=== PATIENT | female | born 1970 | race African-American/Black ===

== ENCOUNTER 2017-04-15 03:35 | Emergency (ER) | payer OTHER ==
--- NOTE | 2017-04-15 03:45 | DR.GENAD ---
HPI - Complaint/Symptoms Chief Complaint Doctors Comments: Patient presented with complaint of headache today, nausea and diarrhea and vomiting. She denies fever but states that she has been dizzy for two weeks. PMH - PMH Past Surgical History: No - Family History Family Medical History: Diabetes Mellitus, Cancer, [place], Hypertension - Social History Do you use any recreational Drugs:: No ROS - Review of Systems Eyes: No Symptoms Reported ENTM: No Symptoms Reported Respiratoy: No Symptoms Reported Cardiovascular: No Symptoms Reported Gastrointestinal/Abdominal: No Symptoms Reported Genitourinary: No Symptoms Reported Neurological: No Symptoms Reported Musculoskeletal: No Symptoms Reported Integumentary: No Symptoms Reported Hematologic/Lymphatic: No Symptoms Reported Endocrine: No Symptoms Reported Psychiatric: No Symptoms Reported All Other Systems: Reviewed and Negative PE - Vital Signs Vitals: Temperature 99.4 F Pulse Rate 89 Respiratory Rate 20 Blood Pressure [Right Arm] 107/62 Blood Pressure 187/102 O2 Sat by Pulse Oximetry 100 - General General Appearance: Alert - Head Head Exam: Normal Inspection, Atraumatic - Eyes Eye exam: Normal Appearance, PERRL, EOMI - ENT ENT Exam: Normal Exam External Ear Exam: Normal External Inspection TM/Canal Exam: Bilateral Normal Nose Exam: Normal Nose Exam Mouth Exam: Normal Inspection Throat Exam: Normal Inspection - Neck Neck Exam: Normal Inspection, Full ROM - Chest Chest Inspection: Normal Inspection - Respiratory Respiratory Exam: Normal Lung Sounds Bilat Respiratory Exam: Bilateral Clear to Auscultation - Cardiovascular Cardiovascular Exam: Regular Rate, Normal Rhythm - Abdominal Exam Abdominal Exam: Normal Inspection Abdominal Tenderness: negative: RUQ, RLQ, LUQ, LLQ, Epigastrium, Suprapubic, Diffuse, Mild, Moderate, Severe, Other - Extremities Extremities Exam: Normal Inspection - Back Back Exam: Normal Inspection - Neurologic Neurological Exam: Alert, Oriented X3, CN II-XII Intact - Psychiatric Psychiatric Exam: Normal Affect - Skin Skin Exam: Warm, Dry, Intact Course - Reevaluation 1st: Improved (headache) ROR - Labs Reviewed Result Diagrams: 04/15/17 04:28 04/15/17 04:28 Laboratory: WBC 6.7 X10^3/uL (3.6-10.0) 04/15/17 04:28 RBC 3.37 X10^6/uL (3.5-5.4) L 04/15/17 04:28 Hgb 8.3 g/dL (12.0-16.0) L 04/15/17 04:28 Hct 25.5 % (36.0-47.0) L 04/15/17 04:28 MCV 75.8 fL (80.0-100.0) L 04/15/17 04:28 MCH 24.8 pg (27.0-34.0) L 04/15/17 04:28 MCHC 32.7 g/dL (33.0-35.0) L 04/15/17 04:28 RDW 17.5 % (11.6-16.5) H 04/15/17 04:28 Plt Count 215 X10^3/uL (150.0-450.0) 04/15/17 04:28 Plt Count Comment Adequate (ADEQUATE) 04/15/17 04: MPV 9.0 fL (7.4-11.0) 04/15/17 04:28 Neut % 67.3 % (42.0-75.0) 04/15/17 04:28 Lymph % 22.4 % (21.0-51.0) 04/15/17 04:28 [place] % 6.0 % (0.0-13.0) 04/15/17 04:28 Eos % 3.3 % (0.9-2.9) H 04/15/17 04:28 Baso % 1.0 % (0.2-1.0) 04/15/17 04: Neut # 4.5 x10^3/uL (2.2-4.8) 04/15/17 04:28 Lymph # 1.5 X10^3/uL (1.3-2.9) 04/15/17 04:28 [place] # 0.4 x10^3/uL (0.3-0.8) 04/15/17 04:28 Eos # 0.2 x10^3/uL (0.0-0.2) 04/15/17 04: Baso # 0.1 X10^3/uL (0.0-0.1) 04/15/17 04:28 Absolute Nucleated RBC 0.0 /100WBC 04/15/17 04:28 Plt Morphology Comment Normal (NORMAL) 04/15/17 04:28 RBC Morphology Normal (NORMAL) 04/15/17 04:28 Sodium 140 mmol/L (136-145) 04/15/17 04:28 Corrected Sodium TNP 04/15/17 04:28 Potassium 3.5 mmol/L (3.5-5.1) 04/15/17 04:28 Chloride 105 mmol/L (98-107) 04/15/17 04:28 Carbon Dioxide 26.1 mmol/L (21-32) 04/15/17 04:28 BUN 10 mg/dL (7-18) 04/15/17 04:28 Creatinine 0.94 mg/dL (0.55-1.02) 04/15/17 04:28 Est GFR (MDRD) Af Amer > 60 (>60) 04/15/17 04:28 Est GFR (MDRD) Non-Af > 60 (>60) 04/15/17 04:28 Glucose 94 mg/dL (65-99) 04/15/17 04:28 Calcium 9.3 mg/dL (8.5-10.1) 04/15/17 04:28 Specimen Type Clean catch urine 04/15/17 04:40 Urine Color Yellow (YELLOW) 04/15/17 04:40 Urine Appearance Clear (CLEAR) 04/15/17 04:40 Urine pH 8.0 (5.0 - 8.0) 04/15/17 04:40 Ur Specific [place] 1.015 (1.000-1.030) 04/15/17 04:40 Urine Protein Negative (NEGATIVE) 04/15/17 04:40 Urine Glucose (UA) Negative (NEGATIVE) 04/15/17 04:40 Urine Ketones Negative (NEGATIVE) 04/15/17 04:40 Urine Occult Blood Negative (NEGATIVE) 04/15/17 04:40 Urine Nitrite Negative (NEGATIVE) 04/15/17 04:40 Urine Bilirubin Negative (NEGATIVE) 04/15/17 04:40 Urine Urobilinogen Normal (NORMAL) 04/15/17 04:40 Ur Leukocyte Esterase Negative (NEGATIVE) 04/15/17 04:40 Urine RBC 0-3 /HPF (NEGATIVE) 04/15/17 04:40 Urine WBC 0-3 /HPF (NEGATIVE) 04/15/17 04:40 Ur Squamous Epith Cells Moderate /HPF (NEGATIVE) 04/15/17 04:40 Urine Bacteria Negative /HPF (NEGATIVE) 04/15/17 04:40 Ur Culture Indicated? No/not indicated 04/15/17 04:40 - XRAY XRAY Interpreted by: Radiologist (chest; No acute abnormality observed) - Diagnosis Discharge Problem: Viral illness - Discharge Plan Condition: Stable - Follow ups/Referrals Follow ups/Referrals: NFD,None [Primary Care Provider] - 3 days - Instructions
[2017-04-15 03:56] VITALS: BMI 36.0
[2017-04-15] MEDS ORDERED: NS 1000 ML 1,000 ML IV ONE (04:17)
[2017-04-15] MEDS ORDERED: TORADOL 30 MG VIAL IVP ONE (04:22)
[2017-04-15] MEDS ORDERED: ZOFRAN INJ 4 MG VIAL IVP ONE (04:22)
[2017-04-15] MEDS ORDERED: NS 1000 ML 1,000 ML ONE (04:23)
[2017-04-15] MEDS ORDERED: TORADOL 30 MG VIAL ONE (04:34)
[2017-04-15] MEDS ORDERED: ZOFRAN INJ 4 MG VIAL ONE (04:34)
[2017-04-15 04:50] LABS: BASOPHILS # (AUTO) 0.1 X10^3/uL (0.0-0.1); EOSINOPHILS # (AUTO) 0.2 x10^3/uL (0.0-0.2); EOSINOPHILS % (AUTO) 3.3 % (0.9-2.9); HEMATOCRIT 25.5 % (36.0-47.0); HEMOGLOBIN 8.3 g/dL (12.0-16.0); LYMPHOCYTES # (AUTO) 1.5 X10^3/uL (1.3-2.9); LYMPHOCYTES % (AUTO) 22.4 % (21.0-51.0); MEAN CORPUSCULAR HEMOGLOBIN 24.8 pg (27.0-34.0); MEAN CORPUSCULAR HGB CONC 32.7 g/dL (33.0-35.0); MEAN CORPUSCULAR VOLUME 75.8 fL (80.0-100.0); MONOCYTES # (AUTO) 0.4 x10^3/uL (0.3-0.8); NEUTROPHILS # (AUTO) 4.5 x10^3/uL (2.2-4.8); NEUTROPHILS % (AUTO) 67.3 % (42.0-75.0); PLATELET COUNT 215 X10^3/uL (150.0-450.0); RED BLOOD COUNT 3.37 X10^6/uL (3.5-5.4); RED CELL DISTRIBUTION WIDTH 17.5 % (11.6-16.5); WHITE BLOOD COUNT 6.7 X10^3/uL (3.6-10.0)
--- NOTE | 2017-04-15 04:52 | RAD ---
AP Chest Indication: Dizziness Comparison: 06/04/2012 Findings: The trachea is midline. The cardiac silhouette is unremarkable. The lungs are clear without focal i nfiltrate or effusion. The bony thorax is unremarkable. IMPRESSION: 1. No acute cardiopulmonary abnormality. Reported By:
[2017-04-15 04:53] LABS: BLOOD UREA NITROGEN 10 mg/dL (7-18); CALCIUM 9.3 mg/dL (8.5-10.1); CARBON DIOXIDE 26.1 mmol/L (21-32); CHLORIDE 105 mmol/L (98-107); CREATININE 0.94 mg/dL (0.55-1.02); SODIUM 140 mmol/L (136-145); eGFR BLACK RACES > 60 (>60); eGFR NON BLACK RACES > 60 (>60)
[2017-04-15 05:07] LABS: BILIRUBIN,URINE NEGATIVE (NEGATIVE); BLOOD/HEMOGLOBIN,URINE NEGATIVE (NEGATIVE); GLUCOSE, URINE NEGATIVE (NEGATIVE); KETONES,URINE NEGATIVE (NEGATIVE); LEUKOCYTE ESTERASE ,URINE NEGATIVE (NEGATIVE); NITRITES,URINE NEGATIVE (NEGATIVE); PROTEIN,URINE NEGATIVE (NEGATIVE); UROBILINOGEN,URINE NORMAL (NORMAL)
[2017-04-15 05:10] LABS: PLATELET MORPHOLOGY COMMENT NORMAL (NORMAL)
[2017-04-15 05:15] LABS: APPEARANCE,URINE CLEAR (CLEAR); BACTERIA,URINE NEGATIVE /HPF (NEGATIVE); COLOR,URINE YELLOW (YELLOW); RBC,URINE 0-3 /HPF (NEGATIVE); SQUAMOUS EPITHELIAL CELL,UR MODERATE /HPF (NEGATIVE)
[2017-04-15 06:12] VITALS: BP 167/95
== END 2017-04-15 06:12 | disposition home or self-care (01) ==
LOC: ER 03:35
DX: B34.9 Viral infection, unspecified (principal)
CPT/HCPCS: 36415; 71045; 80048; 81001; 85025; 96365; 96374; 96375; 99283; A4222; J1885; J2405

== ENCOUNTER 2017-07-11 18:40 | Emergency (ER) | payer OTHER ==
[2017-07-11 18:46] VITALS: BP 151/74; BMI 31.7
--- NOTE | 2017-07-11 19:13 | DR.GENAD ---
HPI - PCP Primary Care Physician: nfd - HPI Comment HPI Comment: HAVING HEADACHE, SEVERE NASAL CONGESTION AND BLOCKAGE AND POST NASAL DRIP WITH PRODUCTIVE COUGH, YELLOW SPUTUM. LOW GRADE FEVER AT HOME. GETTING WORSE. - Complaint/Symptoms Chief Complaint Doctors Comments: EAR ACHE, COUGH, COLD AND CONGESTION TIMES ONE DAY. Chief Complaint:: ear ache, congestion - Nurses notes reviewed Nurses Notes Review: Yes - Source History Provided: Patient - Mode of Arrival Mode of Arrival: Ambulatory - Timing Onset of Chief Complaint: 07/10/17 Came on: Suddenly - Duration Duration: Constant Duration: Days - Severity Severity: Moderate PMH - PMH Past Medical History: Yes Past Surgical History: No - Family History History of Family Medical Conditions: Yes Family Medical History: Diabetes Mellitus, Cancer, [place], Hypertension - Social History Does patient currently use any type of tobacco product: No Have you used tobacco products in the last 12 months: No Type of Tobacco Use: None Does any household member use tobacco: No Alcohol Use: None Do you use any recreational Drugs:: No Lives With: Family Lives Where: Home - infectious screening In the last 2 months have you had wt loss of >10#?: NO Have you had fever, night sweats or hemotysis?: No Have you traveled outside the country in the last 6 months?: No Isolation: Standard ROS - Review of Systems Constitutional: No Symptoms Reported, Fever, Weakness, Fatigue. negative: Chills Eyes: Tearing. negative: Eye Pain, Discharge ENTM: Ear Pain (LT EAR.), Nose Discharge, Nose Congestion, Throat Pain Respiratoy: Productive Cough Cardiovascular: No Symptoms Reported Gastrointestinal/Abdominal: No Symptoms Reported Genitourinary: No Symptoms Reported Neurological: No Symptoms Reported Musculoskeletal: No Symptoms Reported Integumentary: No Symptoms Reported Hematologic/Lymphatic: No Symptoms Reported Endocrine: No Symptoms Reported All Other Systems: Reviewed and Negative PE - Vital Signs Vitals: Temperature 98.1 F Pulse Rate 78 Respiratory Rate 16 Blood Pressure [Right Arm] 167/95 Blood Pressure 151/74 O2 Sat by Pulse Oximetry 99 - General Limitations: No Limitations General Appearance: Alert - Head Head Exam: Normal Inspection - Eyes Eye exam: Normal Appearance - ENT ENT Exam: Normal External Ear Exam External Ear Exam: Normal External Inspection TM/Canal Exam: Bilateral Bulging Nose Exam: Normal Nose Exam Mouth Exam: Normal Inspection Throat Exam: Tonsillar Erythema. negative: Tonsillomegaly, Tonsillar Exudate - Neck Neck Exam: Trachea Midline - Chest Chest Inspection: Symmetric Chest Wall Rise - Respiratory Respiratory Exam: Normal Lung Sounds Bilat Respiratory Exam: Bilateral Clear to Auscultation - Cardiovascular Cardiovascular Exam: Regular Rate, Normal Rhythm, Normal Heart Sounds - Abdominal Exam Abdominal Exam: Normal Bowel Sounds, Soft. negative: Tenderness - Extremities Extremities Exam: Normal Inspection - Back Back Exam: Normal Inspection - Neurologic Neurological Exam: Alert, Oriented X3 - Psychiatric Psychiatric Exam: Normal Affect, Normal Mood - Skin Skin Exam: Normal Color MDM - Differential Diagnosis Differential Diagnosis: EAR ACHE, BRONCHITIS, SINUSITIS Course - Treatment Treatment: SEE ORDERS. - Education/Counseling Education/Counseling: Patient, Education Educated On: Diagnosis, Needs for Follow Up - Diagnosis Discharge Problem: Bronchitis Sinusitis Qualifiers: Sinusitis location: unspecified location Chronicity: acute Recurrence: not specified as recurrent Qualified Code(s): J01.90 - Acute sinusitis, unspecified Left otitis media Qualifiers: Otitis media type: unspecified Qualified Code(s): H66.92 - Otitis media, unspecified, left ear - Discharge Plan Disposition: 01 HOME, SELF-CARE Condition: Stable Prescriptions: Acetaminophen/Codeine Tab [TYLENOL w/CODEINE #3 (300 MG/30 MG) *] 1 tab PO Q6H PRN #15 tab PRN Reason: Pain Amoxicillin [Amoxil 875 mg] 875 mg PO Q12H #20 tab Cetirizine HCl [Zyrtec Tab 10 mg] 10 mg PO DAILY PRN #30 tab PRN Reason: - Follow ups/Referrals Follow ups/Referrals: NFD,None [Primary Care Provider] - 2 days Uriah Guzman [STAFF PHYSICIAN] - 2 days - Instructions Instructions: Otitis Media, Adult, [id number], Sinusitis, Adult, [id number] , Acute Bronchitis, Adult Additional Instructions: RETURN TO ED IF WORSE.
[2017-07-11] MEDS ORDERED: AMOXIL CAP 500 MG PO ONE ×2 (19:22→19:32)
[2017-07-11] MEDS ORDERED: TYLENOL #3 TAB (W/CODEINE) PO ONE ×2 (19:24→19:32)
[2017-07-11] MEDS ORDERED: ZyrTEC TAB 10 MG PO ONE (19:25)
[2017-07-11] MEDS ORDERED: FLONASE NASAL SPRAY ENOSTRIL ONE (19:26)
[2017-07-11] MEDS ORDERED: ZyrTEC TAB 10 MG ONE (19:32)
== END 2017-07-11 19:50 | disposition home or self-care (01) ==
LOC: ER 18:48
DX: H66.92 Otitis media, unspecified, left ear (principal); J40 Bronchitis, not specified as acute or chronic; J01.80 Other acute sinusitis
CPT/HCPCS: 99281; 99282

== ENCOUNTER 2018-10-17 04:20 | Inpatient (IN) ==
[2018-10-17 04:40] VITALS: BMI 33.6
[2018-10-17] MEDS ORDERED: ASPIRIN 81 MG CHEWTAB ONE (04:41)
[2018-10-17] MEDS ORDERED: ASPIRIN 81 MG CHEWTAB PO ONE (04:42)
[2018-10-17] MEDS ORDERED: ATIVAN TAB 0.5 MG PO ONE (04:43)
[2018-10-17] MEDS ORDERED: ATIVAN TAB 0.5 MG ONE (04:44)
[2018-10-17] MEDS: NITROSTAT SL PRN ×4 (04:46→15:20)
[2018-10-17] MEDS ORDERED: LOPRESSOR INJ 5 MG AMP IVP ONE (04:56)
[2018-10-17] MEDS ORDERED: LOPRESSOR INJ 5 MG AMP ONE (05:00)
--- NOTE | 2018-10-17 05:03 | DR.CP ---
HPI Time Seen Time Seen by Provider: 10/17/18 04:38 Complaint Chief Complaint Doctor Comments: Pt presented for sudden onset chest pain. 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 She reports about 1hr ago going to the rest room when suddenly her she could not breath and having chest tightness and left arm numbness and coughing up pink frothy stuff. Positive TEJADA, orthpnea. She has HTN and is overweight. Denies any n/v, diaphoresis, LE swelling or leg pain. Pain pressure like 12/27. Chief Complaint:: Chest pain Reviewed Nurses Notes Review: Yes Source History Provided: Patient Mode of Arrival Mode of Arrival: Ambulatory Timing Onset of Chief Complaint: 10/17/18 Came on: Suddenly Pain: Present Now Duration Duration: Constant How lon Duration: Hours Location Location of Chest Pain: Chest Chest Pain Radiation Location: Left Shoulder Context Onset: At rest and With light exertion Cardiac Risk Factors: Family History and HTN; denies Smoker, Hyperlipidemia and Diabetes PE Risk Factors: None; denies Recent Trauma/Surgery and Immobilization History of: Similar pain in the past (anxiety); denies [place], Cardiomyopathy, DVT/PE and Aspirin in last 24 hours Prehospital Care: None Quality Quality: Pressure like Severity Severity: Mild Modifying Factors Worsens: Exertion, Coughing, Breathing and Position Impoves: NTG, Rest and Position Associated Signs and Symptoms Associated Signs and Symptoms: Shortness of Breath and Palpitations; denies Diaphoresis, Nausea/Vomiting and Calf Pain/Swelling PMH PMH Past Medical History: Hypertension Past Surgical History: Yes 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 Family History Family Medical History: Diabetes Mellitus, Cancer, [place] and Hypertension Social History Does patient currently use any type of tobacco product: No Have you used tobacco products in the last 12 months: No Does any household member use tobacco: No Do you use any recreational Drugs:: No infectious screening Have you traveled outside the country in the last 6 months?: No ROS Review of Systems Constitutional: negative Chills, Diaphoresis, Fever and Loss of Appetite Eyes: Blurred Vision ENTM: negative Nose Congestion Respiratoy: Orthopnea and Short of Breath; negative Productive Cough Cardiovascular: Chest Pain; negative Edema and Palpitations Gastrointestinal/Abdominal: negative Abdominal Pain, Nausea and Vomiting Genitourinary: negative Dysuria and Hematuria Neurological: negative Headache, Numbness, Paresthesia and Weakness Musculoskeletal: negative Muscle Pain Integumentary: negative Rash Hematologic/Lymphatic: negative Blood Clots and Easy Bleeding Endocrine: negative Unexplained Weight Gain and Decreased Appetite Psychiatric: Anxiety; negative Depression All Other Systems: Reviewed and Negative PE Vitals Vitals: Temperature 98.3 F Pulse Rate [Apical] 85 Pulse Rate 130 Respiratory Rate 20 Blood Pressure [Left Arm] 165/80 Blood Pressure [Right Arm] 161/80 Blood Pressure 176/90 O2 Sat by Pulse Oximetry 98 General Limitations: No Limitations General Appearance: Alert, In Distress (hyperventilating) and Obese Head Head Exam: Normal Inspection, Atraumatic and Normocephalic Eyes Eye exam: Normal Appearance, PERRL and EOMI; negative Scleral Icterus ENT ENT Exam: Normal Exam, Normal Oropharynx and Mucous Membranes Moist Chest Chest Inspection: negative Tenderness Respiratory Respiratory Exam: Prolonged Expiratory Phase and Respiratory Distress Respiratory Exam: Bilateral: Rales Cardiovascular Cardiovascular Exam: Normal Rhythm, Tachycardia, Normal Heart Sounds and Systolic Murmur Pulse: Normal, Radial, Left and Right Edema: Normal Abdominal Exam Abdominal Exam: Normal Bowel Sounds, Soft and Guarding; negative Distention and Tenderness Extremities Extremities Exam: Normal Inspection, Full ROM and Normal Capillary Refill; negative Tenderness and Edema Neurologic Neurological Exam: Alert, Oriented X3 and Normal Gait; negative Motor Sensory Deficit Psychiatric Psychiatric Exam: Normal Affect and Anxious Skin Skin Exam: Warm, Dry, Intact and Normal Color MDM Differential Diagnosis Differential Diagnosis: Angina, CHF, Myocardial Infarction, Pneumonia, Pneumothorax and Pulmonary Embolus COURSE Reevaluation 1st: Improved (Pt chest pressure improving after 2 SL NG, ativan 0.25mg and Lopressor. Still having pressure and numbness in left arm.) 2nd: Improved (pt feeling a little better. CXR showed pulmonary edema/CHF.BNP pending. Will given Lasix 40mg x1) 3rd: Improved (pt pain improved with morphine and lasix. She still feels Sob and anxious. Her BNP 231. Will call PCP to discuss case and admission.) Consultation Called: 07:20 Call Returned: 07:45 Consultation Comments: Spoke to Dr. Elder for admission. Discussed case and plan. He agreed and will see I the hospital. 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 Labs Reviewed Laboratory Results Reviewed?: Yes Result Diagrams: 10/17/18 05:00 10/17/18 05:00 Laboratory: WBC 12.2 X10^3/uL (3.6-10.0) H 10/17/18 05:00 RBC 3.69 X10^6/uL (3.5-5.4) 10/17/18 05:00 Hgb 8.8 g/dL (12.0-16.0) L 10/17/18 05:00 Hct 27.0 % (36.0-47.0) L 10/17/18 05:00 MCV 73.3 fL (80.0-100.0) L 10/17/18 05:00 MCH 23.8 pg (27.0-34.0) L 10/17/18 05:00 MCHC 32.5 g/dL (33.0-35.0) L 10/17/18 05:00 RDW 19.0 % (11.6-16.5) H 10/17/18 05:00 Plt Count 283 X10^3/uL (150.0-450.0) 10/17/18 05:00 Plt Count Comment Adequate (ADEQUATE) 10/17/18 05:00 MPV 8.9 fL (7.4-11.0) 10/17/18 05:00 Neut % (Auto) 78.7 % (42.0-75.0) H 10/17/18 05:00 Lymph % (Auto) 14.0 % (21.0-51.0) L 10/17/18 05:00 [place] % (Auto) 5.8 % (0.0-13.0) 10/17/18 05:00 Eos % (Auto) 0.8 % (0.9-2.9) L 10/17/18 05:00 Baso % (Auto) 0.7 % (0.2-1.0) 10/17/18 05:00 Neut # (Auto) 9.6 x10^3/uL (2.2-4.8) H 10/17/18 05:00 Lymph # (Auto) 1.7 X10^3/uL (1.3-2.9) 10/17/18 05:00 [place] # (Auto) 0.7 x10^3/uL (0.3-0.8) 10/17/18 05:00 Eos # (Auto) 0.1 x10^3/uL (0.0-0.2) 10/17/18 05:00 Baso # (Auto) 0.1 X10^3/uL (0.0-0.1) 10/17/18 05:00 Absolute Nucleated RBC 0.0 /100WBC 10/17/18 05:00 Plt Morphology Comment Normal (NORMAL) 10/17/18 05:00 RBC Morphology Abnormal (NORMAL) A 10/17/18 05:00 Hypochromasia 1+ A 10/17/18 05:00 INR Target Range - 10/17/18 05:00 INR 0.97 (0.8-1.3) 10/17/18 05:00 Sodium 140 mmol/L (136-145) 10/17/18 05:00 Corrected Sodium TNP 10/17/18 05:00 Potassium 3.1 mmol/L (3.5-5.1) L 10/17/18 05:00 Chloride 104 mmol/L (98-107) 10/17/18 05:00 Carbon Dioxide 24.4 mmol/L (21-32) 10/17/18 05:00 BUN 13 mg/dL (7-18) 10/17/18 05:00 Creatinine 1.03 mg/dL (0.55-1.02) H 10/17/18 05:00 Est GFR (MDRD) Af Amer > 60 (>60) 10/17/18 05:00 Est GFR (MDRD) Non-Af > 60 (>60) 10/17/18 05:00 Glucose 98 mg/dL (65-99) 10/17/18 05:00 Calcium 8.8 mg/dL (8.5-10.1) 10/17/18 05:00 Troponin I 0.06 ng/mL (0-1.5) 10/17/18 05:00 B-Natriuretic Peptide 231 pg/mL (0-79) H 10/17/18 05:10 TSH 3rd Generation 5.500 uIU/mL (0.358-3.74) H 10/17/18 05:00 Other Results Comments: WBC 12.2K, Hb 8.8 hct 27.0 MCV 73, Trop 0.06 neg, K 3.1 TSH 5.5 BNP 231 CTA chest: no pe, marika pulmonary edema R>L XRAY XRAY Interpreted by: Radiologist and Self XRAY Findings: CHF with pulmonary edema EKG Compared to prior EKG Dated: 05/18/12 Rate: 105 [place]: LAD Rhythm: ST Block: LBBB (old) ST: Nonsp Opioid Opioid Risk Tool Total: 0 Total Score Risk Category: Low Risk Copyright: [facility] predicting aberrant behaviors Diagnosis Discharge Problem: Pulmonary edema cardiac cause, Acute respiratory distress Heart failure Qualifiers: Heart failure type: unspecified Heart failure chronicity: unspecified Qualified Code(s): I50.9 - Heart failure, unspecified Hypothyroidism Qualifiers: Hypothyroidism type: unspecified Qualified Code(s): E03.9 - Hypothyroidism, unspecified Iron deficiency anemia Qualifiers: Iron deficiency anemia type: other iron deficiency Qualified Code(s): D50.8 - Other iron deficiency anemias Instructions Forms: Excuse From Work
[2018-10-17 05:06] LABS: BASOPHILS # (AUTO) 0.1 X10^3/uL (0.0-0.1); BASOPHILS % (AUTO) 0.7 % (0.2-1.0); EOSINOPHILS # (AUTO) 0.1 x10^3/uL (0.0-0.2); EOSINOPHILS % (AUTO) 0.8 % (0.9-2.9); HEMOGLOBIN 8.8 g/dL (12.0-16.0); LYMPHOCYTES # (AUTO) 1.7 X10^3/uL (1.3-2.9); MEAN CORPUSCULAR HEMOGLOBIN 23.8 pg (27.0-34.0); MEAN CORPUSCULAR HGB CONC 32.5 g/dL (33.0-35.0); MEAN CORPUSCULAR VOLUME 73.3 fL (80.0-100.0); MEAN PLATELET VOLUME 8.9 fL (7.4-11.0); MONOCYTES # (AUTO) 0.7 x10^3/uL (0.3-0.8); MONOCYTES % (AUTO) 5.8 % (0.0-13.0); NEUTROPHILS # (AUTO) 9.6 x10^3/uL (2.2-4.8); NEUTROPHILS % (AUTO) 78.7 % (42.0-75.0); PLATELET COUNT 283 X10^3/uL (150.0-450.0); RED BLOOD COUNT 3.69 X10^6/uL (3.5-5.4); WHITE BLOOD COUNT 12.2 X10^3/uL (3.6-10.0)
[2018-10-17 05:15] LABS: PLATELET MORPHOLOGY COMMENT NORMAL (NORMAL)
[2018-10-17 05:16] LABS: HYPOCHROMASIA 1+
[2018-10-17 05:20] LABS: BLOOD UREA NITROGEN 13 mg/dL (7-18); CALCIUM 8.8 mg/dL (8.5-10.1); CARBON DIOXIDE 24.4 mmol/L (21-32); CHLORIDE 104 mmol/L (98-107); CREATININE 1.03 mg/dL (0.55-1.02); SODIUM 140 mmol/L (136-145); TROPONIN I 0.06 ng/mL (0-1.5); eGFR NON BLACK RACES > 60 (>60)
[2018-10-17] MEDS ORDERED: NS 100 ML IV 100 ML ONE (05:45)
[2018-10-17] MEDS ORDERED: K-LYTE EFFERVESCENT PO ONE (05:46)
[2018-10-17] MEDS ORDERED: MORPHINE SULFATE INJ 2 MG INJ IVP ONE (05:48)
[2018-10-17] MEDS ORDERED: LASIX IVP ONE ×2 (06:28→06:44)
[2018-10-17] MEDS ORDERED: MORPHINE SULFATE INJ 2 MG INJ ONE (06:44)
[2018-10-17] MEDS ORDERED: K-LYTE EFFERVESCENT ONE (06:44)
[2018-10-17] MEDS ORDERED: ZESTRIL TAB 5 MG PO SCH (09:00)
[2018-10-17] MEDS: LASIX IVP SCH (10:11)
[2018-10-17 10:13] LABS: CKMB % 1.6 % (<4); CREATINE KINASE MB 1.1 ng/mL (0-4.0); TROPONIN I 0.07 ng/mL (0-1.5)
--- NOTE | 2018-10-17 13:42 | DR.H&P ---
H&P - History & Physical for Day of: H&P Date: 10/17/18 - Chief Complaint Chief Complaint: SOB, CHEST PRESSURE - History of Present Illness History of Present Illness: 48 BF ER ADMISSION AFTER PRESENTING WITH SUDDEN ONSET OF SOB WITH CHEST PRESSURE. PT STATES SHE WAS FEELING BAD, NAUSEA, FELT LIKE SHE HAD A FEVER. She reports about 1hr ago going to the rest room when suddenly her she could not breath and having chest tightness and left arm numbness and coughing up pink frothy stuff. Positive TEJADA, orthpnea. She has HTN and is overweight. Denies any n/v, diaphoresis, LE swelling or leg pain. Pain pressure like 10/10. PT HAD CTA CHEST IN ER REVEALING PULMONARY EDEMA AND CHF. PT ADMITTED TO ICU FOR TREATMENT AND EVALUATION OF ACUTE SOB. 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 denies: Edema Gastrointestinal: Nausea Genitourinary: No Symptoms Reported Skin: No Symptoms Reported Neurological: No Symptoms Reported - Physical Exam Vital Signs: Temperature 98.5 F Pulse Rate [Apical] 87 Pulse Rate 130 Respiratory Rate 20 Blood Pressure [Left Arm] 167/89 Blood Pressure [Right Arm] 161/80 Blood Pressure 176/90 O2 Sat by Pulse Oximetry 2 Oriented: Normal Eyes: Normal Ear: Normal Nose: Normal Throat: Normal Respiratory: RLL Diminished, LLL Diminished Cardiovascular: Tachycardia. negative: Edema : Normal Auscultation: Bowel Sounds: Normal Palpation: Normal Tenderness: Normal Skin: Normal Musculoskeletal: Normal Psychiatric: Anxiety Mood Description: Calm Affect: Anxious Speech Pattern: Appropriate - Assessment/Plan (1) Acute respiratory distress Status: Acute Plan: ADMIT, ICU SERIAL CE AND EKG. CONTINUOUS CARDIAC MONITORING. IV LASIX WITH STRICT I & OS. SUPPLEMENTAL O2, BP CONTROL. ARB, ASPIRIN THERAPY. ELECTROLYTE REPLACEMENT, CTA CHEST IN ER. AM CHEST XRAY (2) Heart failure Qualifiers: Heart failure type: unspecified Heart failure chronicity: unspecified Qualified Code(s): I50.9 - Heart failure, unspecified Status: Acute (3) Pulmonary edema cardiac cause Status: Acute (4) Viral illness Status: Acute (5) Hypertension Qualifiers: Hypertension type: essential hypertension Qualified Code(s): I10 - Essential (primary) hypertension Status: Acute (6) Iron deficiency anemia Qualifiers: Iron deficiency anemia type: other iron deficiency Qualified Code(s): D50.8 - Other iron deficiency anemias Status: Acute - Allergies Allergies/Adverse Reactions: Allergies Allergy/AdvReac Type Severity Reaction Status Date / Time No Known Drug Allergies Allergy Verified 08/30/17 15:07
[2018-10-17] MEDS ORDERED: PHARMACY CONSULT - DOSE _____ XX SCH (14:00)
[2018-10-17] MEDS ORDERED: DEXFERRUM or INFED 25 MG in NS 100 ML IV 100 ML IV NR (16:00)
[2018-10-17] MEDS: ROCEPHIN VIAL 1 GRAM IVP SCH (16:06)
[2018-10-17] MEDS: LOVENOX INJ 40 MG SYR SC SCH (16:06)
[2018-10-17] MEDS: COZAAR PO SCH (16:11)
[2018-10-17 16:16] LABS: CREATINE KINASE 63 Units/L (26-192); CREATINE KINASE MB < 1.0 ng/mL (0-4.0); TROPONIN I 0.09 ng/mL (0-1.5)
[2018-10-17 16:59] LABS: CKMB % 1.6 % (<4)
[2018-10-17] MEDS ORDERED: DEXFERRUM or INFED 975 MG in NS 500 ML IV 500 ML IV NR (17:00)
[2018-10-17 18:51] LABS: CREATINE KINASE 59 Units/L (26-192); CREATINE KINASE MB < 1.0 ng/mL (0-4.0); TROPONIN I 0.09 ng/mL (0-1.5)
[2018-10-17 18:53] LABS: CKMB % 1.7 % (<4)
[2018-10-17] MEDS ORDERED: MICRO K EXTEN CAP 10 MEQ PO PRN (20:27)
[2018-10-17] MEDS ORDERED: K-RIDER 10 MEQ/NS 100 ML 10 MEQ/100 ML BAG IV PRN (20:27)
[2018-10-17] MEDS ORDERED: K-DUR TAB 20 MEQ PO PRN (20:27)
[2018-10-17] MEDS ORDERED: POTASSIUM CHLORIDE LIQ 20 MEQ UDC PO PRN (20:27)
[2018-10-17] MEDS ORDERED: KLOR-CON PO PRN (20:27)
[2018-10-17] MEDS ORDERED: POTASSIUM CHL 60 MEQ/NS 0.45% 500 ML IV PRN (20:27)
[2018-10-17] MEDS ORDERED: POTASSIUM CHL 40 MEQ/NS 0.45% 500 ML IV PRN (20:27)
[2018-10-17] MEDS: MAGNESIUM SULFATE 1 GRAM/100 mL PREMIX 1 GM/100 ML BAG IV PRN ×2 (22:16→23:12)
[2018-10-18 00:52] LABS: CKMB % 2.1 % (<4); CREATINE KINASE 48 Units/L (26-192); CREATINE KINASE MB < 1.0 ng/mL (0-4.0); TROPONIN I 0.09 ng/mL (0-1.5)
[2018-10-18 05:19] LABS: BASOPHILS # (AUTO) 0.1 X10^3/uL (0.0-0.1); EOSINOPHILS # (AUTO) 0.2 x10^3/uL (0.0-0.2); EOSINOPHILS % (AUTO) 3.3 % (0.9-2.9); HEMATOCRIT 26.1 % (36.0-47.0); HEMOGLOBIN 8.4 g/dL (12.0-16.0); LYMPHOCYTES # (AUTO) 1.6 X10^3/uL (1.3-2.9); LYMPHOCYTES % (AUTO) 22.8 % (21.0-51.0); MEAN CORPUSCULAR HEMOGLOBIN 24.1 pg (27.0-34.0); MEAN CORPUSCULAR HGB CONC 32.3 g/dL (33.0-35.0); MEAN CORPUSCULAR VOLUME 74.7 fL (80.0-100.0); MEAN PLATELET VOLUME 9.4 fL (7.4-11.0); MONOCYTES # (AUTO) 0.5 x10^3/uL (0.3-0.8); MONOCYTES % (AUTO) 7.7 % (0.0-13.0); NEUTROPHILS # (AUTO) 4.6 x10^3/uL (2.2-4.8); NEUTROPHILS % (AUTO) 65.2 % (42.0-75.0); PLATELET COUNT 265 X10^3/uL (150.0-450.0); RED CELL DISTRIBUTION WIDTH 19.4 % (11.6-16.5)
[2018-10-18 05:29] LABS: HYPOCHROMASIA 1+; PLATELET MORPHOLOGY COMMENT NORMAL (NORMAL)
[2018-10-18 05:46] LABS: ALANINE AMINOTRANSFERASE 7 Units/L (12-78); ALBUMIN 2.8 g/dL (3.4-5.0); ALKALINE PHOSPHATASE 66 Units/L (46-116); ASPARTATE AMINO TRANSFERASE 13 Units/L (15-37); BLOOD UREA NITROGEN 11 mg/dL (7-18); CALCIUM 8.3 mg/dL (8.5-10.1); CARBON DIOXIDE 24.9 mmol/L (21-32); CHLORIDE 105 mmol/L (98-107); CKMB % 2.4 % (<4); COR CA(FOR HYPOALB) 9.3 mg/dL (8.5-10.1); COR NA(FOR HYPERGLY) 140 mmol/L (136-145); CREATINE KINASE 42 Units/L (26-192); CREATINE KINASE MB < 1.0 ng/mL (0-4.0); CREATININE 0.97 mg/dL (0.55-1.02); MAGNESIUM 2.2 mg/dL (1.7-2.9); SODIUM 140 mmol/L (136-145); TOTAL PROTEIN 7.6 g/dL (6.4-8.2); TROPONIN I 0.09 ng/mL (0-1.5); eGFR NON BLACK RACES > 60 (>60)
[2018-10-18] MEDS: HEMOCYTE-PLUS PO SCH (09:55)
[2018-10-18] MEDS: COZAAR PO SCH (09:55)
[2018-10-18] MEDS: LOVENOX INJ 40 MG SYR SC SCH (09:55)
[2018-10-18] MEDS: ROCEPHIN VIAL 1 GRAM IVP SCH (09:55)
[2018-10-18] MEDS: LASIX IVP SCH (09:55)
[2018-10-18 11:49] LABS: CKMB % 2.2 % (<4); CREATINE KINASE 46 Units/L (26-192); CREATINE KINASE MB < 1.0 ng/mL (0-4.0); TROPONIN I 0.07 ng/mL (0-1.5)
[2018-10-18] MEDS: NITROSTAT SL PRN ×2 (15:43→15:47)
[2018-10-18] MEDS: LEVSIN/MAALOX/LIDOC VISC PO PRN ×2 (15:44→20:32)
[2018-10-18 17:03] LABS: CKMB % 2.3 % (<4); CREATINE KINASE 44 Units/L (26-192); CREATINE KINASE MB < 1.0 ng/mL (0-4.0); TROPONIN I 0.07 ng/mL (0-1.5)
--- NOTE | 2018-10-18 18:53 | PCM.PROG ---
Progress Note - Progress Note for Day of Date of Exam: 10/18/18 - Subjective Subjective: 48 BF ER ADMISSION ON 10/17 WITH CHEST PAIN AND NEW ONSET SOB. PT HAD CHF AND PULMONARY CONGESTION ON CTA CHEST. PT WAS STARTED ON BP CONTROL AND SERIAL CE AND EKGS WITH IV LASIX AND STRICT I &OS. PT CONTINUES TO CO SOB THIS AT, STATES FEELS IMPROVED AT REST, TEJADA AND CHEST PRESSURE PRESENT WHEN AMBULATING TO RESTROOM. PT ON LOSARTAN FOR BP CONTROL. ADDED PRN GI COCKTAIL, NTG FOR CP, REPEAT SERIAL CE AND EKG, IV PROTONIX AND COREG. PT IS ON ASPIRIN AND LOVENOX SQ. - Past Medical Family Social History Past Med/Fam/Surg Hx: No changes since H&P Allergies: Allergies No Known Drug Allergies Allergy (Verified 08/30/17 15:07) - Review of Systems ROS: No change since H&P - Vital Signs and I&O's Vital Signs: Temperature 98.0 F Pulse Rate [Apical] 76 Pulse Rate 82 Respiratory Rate 20 Blood Pressure [Left Arm] 164/90 Blood Pressure [Right Arm] 161/80 Blood Pressure 176/90 O2 Sat by Pulse Oximetry 98 Intake and Output: Intake & Output 10/16/18 10/17/18 10/18/18 10/19/18 11:59 11:59 11:59 11:59 Intake Total 1848 / 1848 Output Total 500 / 500 Balance 1348 / 1348 - Physical Exam Oriented: Normal Eyes: Normal Ear: Normal Nose: Normal Throat: Normal Respiratory: Diminished Cardiovascular: Tachycardia. negative: Edema : Normal Auscultation: Bowel Sounds: Normal Tenderness: Normal Skin: Normal Musculoskeletal: Normal Psychiatric: Anxiety Mood Description: Calm Affect: Anxious Speech Pattern: Clear, Appropriate - Laboratory and Diagnostics Result Diagrams: 10/18/18 04:57 10/18/18 04:57 Labs: Laboratory WBC 7.0 X10^3/uL (3.6-10.0) 10/18/18 04:57 RBC 3.50 X10^6/uL (3.5-5.4) 10/18/18 04:57 Hgb 8.4 g/dL (12.0-16.0) L 10/18/18 04:57 Hct 26.1 % (36.0-47.0) L 10/18/18 04:57 MCV 74.7 fL (80.0-100.0) L 10/18/18 04:57 MCH 24.1 pg (27.0-34.0) L 10/18/18 04:57 MCHC 32.3 g/dL (33.0-35.0) L 10/18/18 04:57 RDW 19.4 % (11.6-16.5) H 10/18/18 04:57 Plt Count 265 X10^3/uL (150.0-450.0) 10/18/18 04:57 Plt Count Comment Adequate (ADEQUATE) 10/18/18 04:57 MPV 9.4 fL (7.4-11.0) 10/18/18 04:57 Neut % (Auto) 65.2 % (42.0-75.0) 10/18/18 04:57 Lymph % (Auto) 22.8 % (21.0-51.0) 10/18/18 04:57 [place] % (Auto) 7.7 % (0.0-13.0) 10/18/18 04:57 Eos % (Auto) 3.3 % (0.9-2.9) H 10/18/18 04:57 Baso % (Auto) 1.0 % (0.2-1.0) 10/18/18 04:57 Neut # (Auto) 4.6 x10^3/uL (2.2-4.8) 10/18/18 04:57 Lymph # (Auto) 1.6 X10^3/uL (1.3-2.9) 10/18/18 04:57 [place] # (Auto) 0.5 x10^3/uL (0.3-0.8) 10/18/18 04:57 Eos # (Auto) 0.2 x10^3/uL (0.0-0.2) 10/18/18 04:57 Baso # (Auto) 0.1 X10^3/uL (0.0-0.1) 10/18/18 04:57 Absolute Nucleated RBC 0.0 /100WBC 10/18/18 04:57 Plt Morphology Comment Normal (NORMAL) 10/18/18 04:57 RBC Morphology Abnormal (NORMAL) A 10/18/18 04:57 Hypochromasia 1+ A 10/18/18 04:57 INR Target Range - 10/17/18 05:00 INR 0.97 (0.8-1.3) 10/17/18 05:00 Sodium 140 mmol/L (136-145) 10/18/18 04:57 Corrected Sodium 140 mmol/L (136-145) 10/18/18 04:57 Potassium 3.8 mmol/L (3.5-5.1) 10/18/18 04:57 Chloride 105 mmol/L (98-107) 10/18/18 04:57 Carbon Dioxide 24.9 mmol/L (21-32) 10/18/18 04:57 BUN 11 mg/dL (7-18) 10/18/18 04:57 Creatinine 0.97 mg/dL (0.55-1.02) 10/18/18 04:57 Est GFR (MDRD) Af Amer > 60 (>60) 10/18/18 04:57 Est GFR (MDRD) Non-Af > 60 (>60) 10/18/18 04:57 Glucose 111 mg/dL (65-99) H 10/18/18 04:57 Calcium 8.3 mg/dL (8.5-10.1) L 10/18/18 04:57 Corrected Calcium 9.3 mg/dL (8.5-10.1) 10/18/18 04:57 Magnesium 2.2 mg/dL (1.7-2.9) 10/18/18 04:57 Iron 19 ug/dL (50-175) L 10/17/18 05:00 Transferrin 400 mg/dL (202-364) H 10/17/18 05:00 Ferritin 9 ng/mL (8-252) 10/17/18 05:00 Total Bilirubin 0.20 mg/dL (0.2-1.0) 10/18/18 04:57 AST 13 Units/L (15-37) L 10/18/18 04:57 ALT 7 Units/L (12-78) L 10/18/18 04:57 Alkaline Phosphatase 66 Units/L (46-116) 10/18/18 04:57 Creatine Kinase 44 Units/L (26-192) 10/18/18 16:27 CK-MB (CK-2) < 1.0 ng/mL (0-4.0) 10/18/18 16:27 CK/CKMB % Calc 2.3 % (<4) 10/18/18 16:27 Troponin I 0.07 ng/mL (0-1.5) 10/18/18 16:27 B-Natriuretic Peptide 231 pg/mL (0-79) H 10/17/18 05:10 Total Protein 7.6 g/dL (6.4-8.2) 10/18/18 04:57 Albumin 2.8 g/dL (3.4-5.0) L 10/18/18 04:57 Globulin 4.8 g/dL (2.5-4.5) H 10/18/18 04:57 Albumin/Globulin Ratio 0.6 Ratio (1.1-2.1) L 10/18/18 04:57 Vitamin B12 828 pg/mL (193-986) 10/17/18 05:00 Folate 10.5 ng/mL (>8.6) 10/17/18 05:00 TSH 3rd Generation 5.500 uIU/mL (0.358-3.74) H 10/17/18 05:00 - Plan (1) Heart failure Status: Acute Qualifiers: Heart failure type: unspecified Heart failure chronicity: unspecified Qualified Code(s): I50.9 - Heart failure, unspecified Plan: ICU SERIAL CE AND EKG. CONTINUOUS CARDIAC MONITORING. IV LASIX WITH STRICT I & OS. SUPPLEMENTAL O2, BP CONTROL. ARB, ASPIRIN THERAPY (2) Acute respiratory distress Status: Acute (3) Pulmonary edema cardiac cause Status: Acute (4) Viral illness Status: Acute (5) Hypertension Status: Acute Qualifiers: Hypertension type: essential hypertension Qualified Code(s): I10 - Essential (primary) hypertension (6) Iron deficiency anemia Status: Acute Qualifiers: Iron deficiency anemia type: other iron deficiency Qualified Code(s): D50.8 - Other iron deficiency anemias
[2018-10-18] MEDS: COREG TAB 3.125 MG PO SCH (20:31)
[2018-10-18] MEDS: PROTONIX INJ 40 MG VIAL IVP SCH (20:31)
[2018-10-18] MEDS ORDERED: LOPRESSOR TAB 25 MG PO SCH (21:00)
[2018-10-18 23:40] LABS: CKMB % 2.5 % (<4); CREATINE KINASE 40 Units/L (26-192); CREATINE KINASE MB < 1.0 ng/mL (0-4.0); TROPONIN I 0.06 ng/mL (0-1.5)
[2018-10-19 05:10] LABS: BASOPHILS # (AUTO) 0.1 X10^3/uL (0.0-0.1); BASOPHILS % (AUTO) 1.4 % (0.2-1.0); EOSINOPHILS # (AUTO) 0.2 x10^3/uL (0.0-0.2); EOSINOPHILS % (AUTO) 3.2 % (0.9-2.9); HEMATOCRIT 26.5 % (36.0-47.0); HEMOGLOBIN 8.7 g/dL (12.0-16.0); LYMPHOCYTES # (AUTO) 1.5 X10^3/uL (1.3-2.9); LYMPHOCYTES % (AUTO) 23.5 % (21.0-51.0); MEAN CORPUSCULAR HEMOGLOBIN 24.8 pg (27.0-34.0); MEAN CORPUSCULAR HGB CONC 32.7 g/dL (33.0-35.0); MEAN CORPUSCULAR VOLUME 75.8 fL (80.0-100.0); MEAN PLATELET VOLUME 9.7 fL (7.4-11.0); MONOCYTES # (AUTO) 0.6 x10^3/uL (0.3-0.8); MONOCYTES % (AUTO) 8.6 % (0.0-13.0); NEUTROPHILS # (AUTO) 4.1 x10^3/uL (2.2-4.8); NEUTROPHILS % (AUTO) 63.3 % (42.0-75.0); PLATELET COUNT 275 X10^3/uL (150.0-450.0); WHITE BLOOD COUNT 6.5 X10^3/uL (3.6-10.0)
[2018-10-19 05:23] LABS: ALANINE AMINOTRANSFERASE 7 Units/L (12-78); ALBUMIN 2.9 g/dL (3.4-5.0); ALKALINE PHOSPHATASE 66 Units/L (46-116); ASPARTATE AMINO TRANSFERASE 14 Units/L (15-37); BLOOD UREA NITROGEN 9 mg/dL (7-18); CALCIUM 8.5 mg/dL (8.5-10.1); CARBON DIOXIDE 25.4 mmol/L (21-32); CHLORIDE 104 mmol/L (98-107); COR CA(FOR HYPOALB) 9.4 mg/dL (8.5-10.1); CREATININE 0.95 mg/dL (0.55-1.02); SODIUM 139 mmol/L (136-145); TOTAL PROTEIN 7.9 g/dL (6.4-8.2); eGFR NON BLACK RACES > 60 (>60)
[2018-10-19 05:53] LABS: ANISOCYTOSIS SLIGHT; HYPOCHROMASIA 1+; PLATELET MORPHOLOGY COMMENT NORMAL (NORMAL)
[2018-10-19 09:02] LABS: CKMB % 2.6 % (<4); CREATINE KINASE 38 Units/L (26-192); CREATINE KINASE MB < 1.0 ng/mL (0-4.0); TROPONIN I 0.05 ng/mL (0-1.5)
[2018-10-19] MEDS: HEMOCYTE-PLUS PO SCH (09:04)
[2018-10-19] MEDS: ROCEPHIN VIAL 1 GRAM IVP SCH (09:04)
[2018-10-19] MEDS: LASIX IVP SCH (09:04)
[2018-10-19] MEDS: COREG TAB 3.125 MG PO SCH (09:04)
[2018-10-19] MEDS: COZAAR PO SCH (09:04)
[2018-10-19] MEDS: PROTONIX INJ 40 MG VIAL IVP SCH (09:05)
[2018-10-19] MEDS: LOVENOX INJ 40 MG SYR SC SCH (09:05)
[2018-10-19] MEDS ORDERED: XANAX ONE (10:20)
[2018-10-19] MEDS ORDERED: XANAX PO ONE (10:30)
[2018-10-19 11:55] VITALS: BP 121/60
[2018-10-19] MEDS ORDERED: XANAX PO NR (12:00)
--- NOTE | 2018-10-19 13:07 | PCM.DCPLAN ---
Discharge Summary - Admission Date Date of Admission: 10/17/18 - Discharge Date Discharge Date: 10/19/18 - Admission Diagnoses (1) Heart failure Status: Acute (2) Acute respiratory distress Status: Acute (3) Pulmonary edema cardiac cause Status: Acute (4) Viral illness Status: Acute (5) Hypertension Status: Acute (6) Iron deficiency anemia Status: Acute - Discharge Diagnoses Discharge Diagnosis: same as admission - Discharge Medications Discharge Medications: Home Medication List norgestimate-ethinyl estradiol [Tri-Sprintec (28)] 1 tab PO DAILY 10/17/18 [History] Prescriptions: - Hospital Course Vital Signs: Temperature 98.6 F Pulse Rate [Apical] 61 Pulse Rate 79 Respiratory Rate 22 Blood Pressure [Left Arm] 161/73 Blood Pressure [Right Arm] 161/80 Blood Pressure 121/60 O2 Sat by Pulse Oximetry 98 Latest Lab Results: Laboratory Last Values WBC 6.5 X10^3/uL (3.6-10.0) 10/19/18 04:27 RBC 3.50 X10^6/uL (3.5-5.4) 10/19/18 04:27 Hgb 8.7 g/dL (12.0-16.0) L 10/19/18 04:27 Hct 26.5 % (36.0-47.0) L 10/19/18 04:27 MCV 75.8 fL (80.0-100.0) L 10/19/18 04:27 MCH 24.8 pg (27.0-34.0) L 10/19/18 04:27 MCHC 32.7 g/dL (33.0-35.0) L 10/19/18 04:27 RDW 19.0 % (11.6-16.5) H 10/19/18 04:27 Plt Count 275 X10^3/uL (150.0-450.0) 10/19/18 04:27 Plt Count Comment Adequate (ADEQUATE) 10/19/18 04:27 MPV 9.7 fL (7.4-11.0) 10/19/18 04:27 Neut % (Auto) 63.3 % (42.0-75.0) 10/19/18 04:27 Lymph % (Auto) 23.5 % (21.0-51.0) 10/19/18 04:27 [place] % (Auto) 8.6 % (0.0-13.0) 10/19/18 04:27 Eos % (Auto) 3.2 % (0.9-2.9) H 10/19/18 04:27 Baso % (Auto) 1.4 % (0.2-1.0) H 10/19/18 04:27 Neut # (Auto) 4.1 x10^3/uL (2.2-4.8) 10/19/18 04:27 Lymph # (Auto) 1.5 X10^3/uL (1.3-2.9) 10/19/18 04:27 [place] # (Auto) 0.6 x10^3/uL (0.3-0.8) 10/19/18 04:27 Eos # (Auto) 0.2 x10^3/uL (0.0-0.2) 10/19/18 04:27 Baso # (Auto) 0.1 X10^3/uL (0.0-0.1) 10/19/18 04:27 Absolute Nucleated RBC 0.3 /100WBC 10/19/18 04:27 Plt Morphology Comment Normal (NORMAL) 10/19/18 04:27 RBC Morphology Abnormal (NORMAL) A 10/19/18 04:27 Hypochromasia 1+ A 10/19/18 04:27 Anisocytosis Slight A 10/19/18 04:27 INR Target Range - 10/17/18 05:00 INR 0.97 (0.8-1.3) 10/17/18 05:00 Sodium 139 mmol/L (136-145) 10/19/18 04:27 Corrected Sodium TNP 10/19/18 04:27 Potassium 3.9 mmol/L (3.5-5.1) 10/19/18 04:27 Chloride 104 mmol/L (98-107) 10/19/18 04:27 Carbon Dioxide 25.4 mmol/L (21-32) 10/19/18 04:27 BUN 9 mg/dL (7-18) 10/19/18 04:27 Creatinine 0.95 mg/dL (0.55-1.02) 10/19/18 04:27 Est GFR (MDRD) Af Amer > 60 (>60) 10/19/18 04:27 Est GFR (MDRD) Non-Af > 60 (>60) 10/19/18 04:27 Glucose 103 mg/dL (65-99) H 10/19/18 04:27 Calcium 8.5 mg/dL (8.5-10.1) 10/19/18 04:27 Corrected Calcium 9.4 mg/dL (8.5-10.1) 10/19/18 04:27 Magnesium 2.2 mg/dL (1.7-2.9) 10/18/18 04:57 Iron 19 ug/dL (50-175) L 10/17/18 05:00 Transferrin 400 mg/dL (202-364) H 10/17/18 05:00 Ferritin 9 ng/mL (8-252) 10/17/18 05:00 Total Bilirubin 0.10 mg/dL (0.2-1.0) L 10/19/18 04:27 AST 14 Units/L (15-37) L 10/19/18 04:27 ALT 7 Units/L (12-78) L 10/19/18 04:27 Alkaline Phosphatase 66 Units/L (46-116) 10/19/18 04:27 Creatine Kinase 38 Units/L (26-192) 10/19/18 04:27 CK-MB (CK-2) < 1.0 ng/mL (0-4.0) 10/19/18 04:27 CK/CKMB % Calc 2.6 % (<4) 10/19/18 04:27 Troponin I 0.05 ng/mL (0-1.5) 10/19/18 04:27 B-Natriuretic Peptide 231 pg/mL (0-79) H 10/17/18 05:10 Total Protein 7.9 g/dL (6.4-8.2) 10/19/18 04:27 Albumin 2.9 g/dL (3.4-5.0) L 10/19/18 04:27 Globulin 5.0 g/dL (2.5-4.5) H 10/19/18 04:27 Albumin/Globulin Ratio 0.6 Ratio (1.1-2.1) L 10/19/18 04:27 Vitamin B12 828 pg/mL (193-986) 10/17/18 05:00 Folate 10.5 ng/mL (>8.6) 10/17/18 05:00 TSH 3rd Generation 5.500 uIU/mL (0.358-3.74) H 10/17/18 05:00 Hospital Course: 48 BF ER ADMISSION ON 10/17 WITH CHEST PAIN AND NEW ONSET SOB DUE TO BILATERAL PULMONARY EDEMA. PT HAD CHF AND PULMONARY CONGESTION ON CTA CHEST. PT WAS STARTED ON BP CONTROL AND SERIAL CE AND EKGS WITH IV LASIX AND STRICT I &OS. PT HAD SLIGHT INCREASED IN TROPONIN, BUT STILL IN NORMAL RANGE. PT CONTINUES TO CO SOB THIS AT, STATES FEELS IMPROVED AT REST, TEJADA AND CHEST PRESSURE PRESENT WHEN AMBULATING TO RESTROOM. PT ON LOSARTAN FOR BP CONTROL. ADDED PRN GI COCKTAIL, NTG FOR CP, REPEAT SERIAL CE AND EKG, IV PROTONIX AND COREG. PTON ASPIRIN AND LOVENOX SQ. AFTER MEDICATION CHANGES FOR BP CONTROL AND GI CAUSE OF CP PT CONTINUES WITH CO CHEST PAIN AND PRESSURE. PT AGREED FOR CARDIAC CATH AND TRANSFERRED VIA EMS TO [facility] FOR CARDIAC EVALUATION - Discharge Plan Disposition: [facility]F [facility] Condition: Fair - Follow ups/Referrals Follow ups/Referrals: NFD,None [Primary Care Provider] - 3 days - Instructions Forms: Excuse From Work
== END 2018-10-19 11:57 | disposition short-term general hospital (02) | DRG 293 ==
LOC: ER 04:23 → MED/SURG 07:48 → ICU 09:22
PROVIDERS: ADMIT Internal Medicine; ATTEND Internal Medicine
DX: D50.8 Other iron deficiency anemias; R07.89 Other chest pain; R06.03 Acute respiratory distress; I50.1 Left ventricular failure, unspecified; R94.31 Abnormal electrocardiogram [ECG] [EKG]; E03.8 Other specified hypothyroidism; I11.0 Hypertensive heart disease with heart failure; B34.9 Viral infection, unspecified
CPT/HCPCS: 36415; 71010; 71045; 71275; 80048; 80053; 82550; 82553; 82607; 82728; 82746; 83540; 83735; 83880; 84132; 84443; 84466; 84484; 85025; 85610; 93005; 96365; 96374; 96375; 99284; A4222; C9113; J0696; J1650; J1750; J1940; J2270; J3475; J3490; J7040; J7050; J8499

== ENCOUNTER 2021-07-12 06:27 | Observation (INO) ==
[2021-07-12] MEDS ORDERED: NS 1,000 ML IV 1,000 ML ONE (06:35)
[2021-07-12] MEDS ORDERED: D5 LR 1,000 ML 1,000 ML IV ONE (06:52)
[2021-07-12] MEDS ORDERED: XYLOCAINE 2 % (PLAIN) ONE (07:33)
[2021-07-12] MEDS ORDERED: DIPRIVAN VIAL 20 ML ONE ×3 (07:33→08:11)
[2021-07-12] MEDS ORDERED: KETAMINE HCL ONE (07:46)
[2021-07-12] MEDS ORDERED: BREVIBLOC ONE (07:59)
[2021-07-12] MEDS ORDERED: APRESOLINE INJ 20 MG VIAL ONE (08:00)
[2021-07-12] MEDS ORDERED: DUONEB 0.5 MG/3 MG (3 mL) NEB ONE ×2 (08:18→08:31)
[2021-07-12] MEDS ORDERED: DECADRON INJ ONE (08:21)
[2021-07-12 09:37] LABS: CKMB % 1.9 % (<4); CREATINE KINASE 53 Units/L (26-192); CREATINE KINASE MB < 1.0 ng/mL (0-4.0)
[2021-07-12] MEDS ORDERED: TORADOL 30 MG VIAL ONE (10:05)
[2021-07-12] MEDS ORDERED: MORPHINE SULFATE INJ 2 MG INJ IVP ONE (10:08)
[2021-07-12] MEDS ORDERED: MORPHINE SULFATE INJ 4 MG ONE (10:11)
[2021-07-12] MEDS ORDERED: BENADRYL INJ 50 MG VIAL ONE (10:21)
--- NOTE | 2021-07-12 10:22 | RAD ---
HISTORYPost anesthesia SOBSTUDYAP chestCOMPARISONAugust 2018 report onlyFINDINGSCardiomegaly with LVH contour. The lungs are clear of active process. There is no definite pneumonia, pneumothorax or large pleural effusion.IMPRESSIONCardiomegaly.Electronicall y signed by: NADER FAIRCHILD (Jul 12, 2021 10:22:01)
[2021-07-12] MEDS ORDERED: BENADRYL INJ 50 MG VIAL IVP ONE (10:23)
[2021-07-12] MEDS ORDERED: NS 1,000 ML IV 1,000 ML IV SCH (11:00)
[2021-07-12 11:06] LABS: HEMOGLOBIN 11.4 g/dL (12.0-16.0); MEAN CORPUSCULAR HGB CONC 33.3 g/dL (33.0-35.0); MEAN PLATELET VOLUME 9.5 fL (7.4-11.0)
[2021-07-12 11:09] LABS: BASOPHILS % (AUTO) 0.5 % (0.2-1.0); EOSINOPHILS % (AUTO) 0.5 % (0.9-2.9); HEMATOCRIT 34.3 % (36.0-47.0); LYMPHOCYTES # (AUTO) 0.8 X10^3/uL (1.3-2.9); MEAN CORPUSCULAR VOLUME 84.2 fL (80.0-100.0); MONOCYTES # (AUTO) 0.1 x10^3/uL (0.3-0.8); NEUTROPHILS # (AUTO) 5.5 x10^3/uL (2.2-4.8); RED BLOOD COUNT 4.07 X10^6/uL (3.5-5.4); WHITE BLOOD COUNT 6.6 X10^3/uL (3.6-10.0)
[2021-07-12 11:32] LABS: ALANINE AMINOTRANSFERASE 18 Units/L (12-78); ALBUMIN 3.8 g/dL (3.4-5.0); ALKALINE PHOSPHATASE 98 Units/L (46-116); AMYLASE 68 Units/L (25-115); ASPARTATE AMINO TRANSFERASE 21 Units/L (15-37); BLOOD UREA NITROGEN 11 mg/dL (7-18); CHLORIDE 105 mmol/L (98-107); CKMB % 1.6 % (<4); CREATINE KINASE 61 Units/L (26-192); CREATINE KINASE MB < 1.0 ng/mL (0-4.0); CREATININE 0.97 mg/dL (0.55-1.02); LIPASE 67 Units/L (73-393); SODIUM 141 mmol/L (136-145); TOTAL PROTEIN 8.5 g/dL (6.4-8.2); eGFR NON BLACK RACES > 60 (>60)
[2021-07-12 11:48] VITALS: BMI 36.6
[2021-07-12] MEDS ORDERED: APRESOLINE INJ 20 MG VIAL IVP ONE ×2 (12:09→14:44)
[2021-07-12] MEDS ORDERED: HEPARIN SODIUM IN D5W 25,000 UNITS/500 ML BAG IV PRN (12:10)
--- NOTE | 2021-07-12 12:40 | DR.SSS ---
SHORT STAY SUMMARY Admission Date Date of Admission: 07/12/21 Discharge Date Discharge Date: 07/12/21 Admission Diagnoses Admission Diagnoses: chest pain elevated troponin Discharge Diagnoses Discharge Diagnoses: Chest pain rule out ACS NSTEMI LBBB Uncontrolled hypertension Chief Complaint Chief Complaint: chest pain History of Present Illness History of Present Illness: Ms Redmond is a 51y/o female with a PMH of uncontro lled HTN, CHF and CAD who presented for outpatient EGD and colonoscopy. Patient was noted to have some ST changes on telemetry after the procedure so EKG and cardiac enzymes were ordered. Patient's troponin was elevated so she was admitted to ICU for further evaluation. Patient reports having intermittent chest pain for the past week with radiation to her arm. She did see cardiology few weeks ago and was set up for outpatient stress test and echo later this week. She reports her BP being uncontrolled for the past few days, last night SBP in 200s. She doubled up on her BP medications. She denies chest pain right now. Her BP is elevated, SBP 170-180. She did get some morphine earlier but had an allergic reaction and was given Benadryl. 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 Surgery Allergies Allergies Allergy/AdvReac Type Severity Reaction Status Date / Time morphine AdvReac Verified 07/12/21 12:15 Medications Home Medications: morphine Adverse Reaction (Verified 07/12/21 12:15) Family History Family Medical History: Diabetes Mellitus, Cancer, DE and Hypertension Social History Does patient currently use any type of tobacco product: No Have you used tobacco products in the last 12 months: No Type of Tobacco Use: None Does any household member use tobacco: No Alcohol Use: Occasionally Drug Use: None Review of Systems Constitutional: No Symptoms Reported Eyes: No Symptoms Reported ENT: No Symptoms Reported Respiratory: Shortness of Breath Cardiovascular: Chest Pain Gastrointestinal: No Symptoms Reported Genitourinary: No Symptoms Reported Musculoskeletal: No Symptoms Reported Skin: No Symptoms Reported Neurological: No Symptoms Reported Physical Exam Vital Signs: Last Vital Signs Temp 98.5 F 07/12/21 06:55 Pulse 90 07/12/21 11:53 Resp 20 07/12/21 11:53 BP 171/98 07/12/21 10:31 Pulse Ox 100 07/12/21 11:53 Oriented: Normal Eyes: Normal Ear: Normal Nose: Normal Throat: Normal Respiratory: Clear Throughout Cardiovascular: Tachycardia Auscultation: Bowel Sounds: Normal Palpation: Normal Tenderness: Normal Skin: Normal Musculoskeletal: Normal Psychiatric: Normal Mood Description: Calm Affect: Normal Speech Pattern: Clear and Appropriate Labs Labs: Laboratory Last Values WBC 6.6 X10^3/uL (3.6-10.0) 07/12/21 10:57 RBC 4.07 X10^6/uL (3.5-5.4) 07/12/21 10:57 Hgb 11.4 g/dL (12.0-16.0) L 07/12/21 10:57 Hct 34.3 % (36.0-47.0) L 07/12/21 10:57 MCV 84.2 fL (80.0-100.0) 07/12/21 10:57 MCH 28.0 pg (27.0-34.0) 07/12/21 10:57 MCHC 33.3 g/dL (33.0-35.0) 07/12/21 10:57 RDW 16.0 % (11.6-16.5) 07/12/21 10:57 Plt Count 170 X10^3/uL (150.0-450.0) 07/12/21 10:57 MPV 9.5 fL (7.4-11.0) 07/12/21 10:57 Neut % (Auto) 84.0 % (42.0-75.0) H 07/12/21 10:57 Lymph % (Auto) 13.0 % (21.0-51.0) L 07/12/21 10:57 [place] % (Auto) 2.0 % (0.0-13.0) 07/12/21 10:57 Eos % (Auto) 0.5 % (0.9-2.9) L 07/12/21 10:57 Baso % (Auto) 0.5 % (0.2-1.0) 07/12/21 10:57 Neut # (Auto) 5.5 x10^3/uL (2.2-4.8) H 07/12/21 10:57 Lymph # (Auto) 0.8 X10^3/uL (1.3-2.9) L 07/12/21 10:57 [place] # (Auto) 0.1 x10^3/uL (0.3-0.8) L 07/12/21 10:57 Eos # (Auto) 0.0 x10^3/uL (0.0-0.2) 07/12/21 10:57 Baso # (Auto) 0.0 X10^3/uL (0.0-0.1) 07/12/21 10:57 Absolute Nucleated RBC 0.0 /100WBC 07/12/21 10:57 Sodium 141 mmol/L (136-145) 07/12/21 10:57 Corrected Sodium TNP 07/12/21 10:57 Potassium 3.6 mmol/L (3.5-5.1) 07/12/21 10:57 Chloride 105 mmol/L (98-107) 07/12/21 10:57 Carbon Dioxide 28.0 mmol/L (21-32) 07/12/21 10:57 BUN 11 mg/dL (7-18) 07/12/21 10:57 Creatinine 0.97 mg/dL (0.55-1.02) 07/12/21 10:57 Est GFR (MDRD) Af Amer > 60 (>60) 07/12/21 10:57 Est GFR (MDRD) Non-Af > 60 (>60) 07/12/21 10:57 Glucose 98 mg/dL (65-99) 07/12/21 10:57 Calcium 9.0 mg/dL (8.5-10.1) 07/12/21 10:57 Corrected Calcium TNP 07/12/21 10:57 Total Bilirubin 0.40 mg/dL (0.2-1.0) 07/12/21 10:57 AST 21 Units/L (15-37) 07/12/21 10:57 ALT 18 Units/L (12-78) 07/12/21 10:57 Alkaline Phosphatase 98 Units/L (46-116) 07/12/21 10:57 Creatine Kinase 61 Units/L (26-192) 07/12/21 10:57 CK-MB (CK-2) < 1.0 ng/mL (0-4.0) 07/12/21 10:57 CK/CKMB % Calc 1.6 % (<4) 07/12/21 10:57 Troponin I High Sens 68.5 ng/L (4.0-60.0) H* 07/12/21 10:57 Total Protein 8.5 g/dL (6.4-8.2) H 07/12/21 10:57 Albumin 3.8 g/dL (3.4-5.0) 07/12/21 10:57 Globulin 4.7 g/dL (2.5-4.5) H 07/12/21 10:57 Albumin/Globulin Ratio 0.8 Ratio (1.1-2.1) L 07/12/21 10:57 Amylase 68 Units/L (25-115) 07/12/21 10:57 Lipase 67 Units/L (73-393) L 07/12/21 10:57 Tissue Pathology To follow 07/12/21 08:00 Assessment/Plan (1) NSTEMI (non-ST elevated myocardial infarction): (2) Uncontrolled hypertension: (3) Chest pain: (4) CAD (coronary artery disease): (5) CHF (congestive heart failure): Hospital Course Hospital Course: Patient was noted to have EKG changes on telemetry and was complaining of chest pain post-procedure. EKG did show ST changes and initial troponin was elevated. Patient's BP was also elevated, SBP 170-180s. She was admitted to ICU with telemetry. Patient's 2nd set of troponins remained elevated at 68. Patient's other labs were normal. She did receive morphine in the OR. Denied chest pain on exam. Due to patient's elevated troponin and EKG changes, patient would need to be transferred for possible cath and cardiology evaluation. Patient was started on heparin drip and given hydralazine 10 mg IV x 2 to help control her BP. Discussed with patient and agreed for transfer. Discussed with [facility] cardiology Dr Diallo and hospitalist for transfer. Patient is stable for transfer to [facility]. Time spent for clinical assessment, reviewing labs/imaging, physical exam, decision making, discussed with transfer physicians and documentation greater th an 75 mins. Discharge Medications Discharge Medications: Prescriptions: Discharge Disposition Discharge Disposition: [facility] [address]
[2021-07-12] MEDS ORDERED: HEPARIN SODIUM INJ 5000 UNITS IVP ONE (12:53)
[2021-07-12 15:02] VITALS: BP 180/82
== END 2021-07-12 15:30 | disposition short-term general hospital (02) ==
LOC: ICU 06:27 → SURG1 06:27 → INTOOBSV 10:43 → OBSVTOIN 10:43
PROVIDERS: ADMIT Internal Medicine; ATTEND Internal Medicine
DX: K62.5 Hemorrhage of anus and rectum; K29.00 Acute gastritis without bleeding; R94.31 Abnormal electrocardiogram [ECG] [EKG]; R06.02 Shortness of breath; K52.89 Other specified noninfective gastroenteritis and colitis; R19.4 Change in bowel habit; Z80.9 Family history of malignant neoplasm, unspecified; R13.11 Dysphagia, oral phase; K44.9 Diaphragmatic hernia without obstruction or gangrene; R07.89 Other chest pain; R77.8 Other specified abnormalities of plasma proteins; K21.00 Gastro-esophageal reflux disease with esophagitis, without bleeding